=== PATIENT | female | born 1965 | race Caucasian/White ===

== ENCOUNTER 2016-11-22 14:58 | Inpatient (IN) | payer OTHER ==
[~2016-11-22] VITALS: Ht 165.1 cm; Wt 100.0 kg
[~2016-11-22 14:58] MED LIST: FLEXERIL OR; PERCOCET 5/325M1 TAB OR
[2016-11-22 16:00] LABS: HEMATOCRIT 45.2 % (37.0-47.0); IMMATURE GRANULOCYTES 1.2 % (0.0-1.0); MEAN CELL VOLUME 88.1 fL CALC (80.0-100.0); MEAN CORPUSCULAR HGB 29.2 pG CALC (26.0-32.0); MEAN CORPUSCULAR HGB CONC 33.2 g/L CALC (32.0-36.0); NEUT# 5.1 thou/uL (2.00-7.15); RED BLOOD COUNT 5.13 mill/uL (4.20-5.60); RED CELL DISTRI WIDTH 12.8 % (11.5-15.5)
[2016-11-22 16:12] LABS: ALBUMIN 4.5 g/dL (3.2-5.0); ALKALINE PHOSPHATASE 93 u/l (38-126); ANION GAP 17 (6-22 (CALC)); BILIRUBIN, TOTAL 1.1 mg/dL (0.0-1.4); BUN 15 mg/dL (7-17); BUN/CREATININE RATIO 17 (12-20 (CALC)); CALCIUM 10.5 mg/dL (8.4-10.2); CARBON DIOXIDE 28 mmol/l (22-30); CHLORIDE 102 mmol/l (95-108); CREATININE 0.9 mg/dL (0.5-1.0); GFR > 60 ML/MIN (>=60 (CALC)); GFR FOR AFR.AMER. > 60 ML/MIN (>=60 (CALC)); GLUCOSE 99 mg/dL (65-105); LIPASE 88 u/l (23-300); POTASSIUM 4.1 mmol/l (3.5-5.1); SGOT/AST 27 u/l (14-36); SGPT/ALT 45 u/l (9-52); SODIUM 143 mmol/l (137-146); TOTAL PROTEIN 7.6 g/dL (6.3-8.2)
[2016-11-22 17:19] LABS: URINE BILIRUBIN - DIPSTICK NEGATIVE (NEGATIVE); URINE BLOOD DIPSTICK NEGATIVE (NEGATIVE); URINE CLARITY CLEAR; URINE COLOR YELLOW; URINE GLUCOSE - DIPSTICK NEGATIVE (NEGATIVE); URINE KETONE TRACE mg/dL (NEGATIVE); URINE LEUK ESTERASE NEGATIVE (NEGATIVE); URINE NITRITE - DIPSTICK NEGATIVE (Negative); URINE PH 5.5 (4.5-8.0); URINE PROTEIN - DIPSTICK NEGATIVE (NEG-TRACE); URINE SPECIFIC GRAVITY >=1.030; URINE UROBILINOGEN - DIPSTICK 0.2 E.U./dL (0.2)
[2016-11-22 23:15] VITALS: BP 118/69
[2016-11-23] VITALS (10 sets, daily range): BP systolic 99–125; BP diastolic 45–85
[2016-11-24 03:55] VITALS: BP 113/48
[2016-11-24 06:59] LABS: HEMATOCRIT 38.2 % (37.0-47.0); HEMOGLOBIN 12.5 g/dl (12.0-16.0); IMMATURE GRANULOCYTES 0.6 % (0.0-1.0); MEAN CELL VOLUME 90.7 fL CALC (80.0-100.0); MEAN CORPUSCULAR HGB 29.7 pG CALC (26.0-32.0); MEAN CORPUSCULAR HGB CONC 32.7 g/L CALC (32.0-36.0); NEUT# 4.93 thou/uL (2.00-7.15); RED BLOOD COUNT 4.21 mill/uL (4.20-5.60); RED CELL DISTRI WIDTH 13.1 % (11.5-15.5)
[2016-11-24 07:22] LABS: ANION GAP 12 (6-22 (CALC)); BUN 9 mg/dL (7-17); BUN/CREATININE RATIO 11 (12-20 (CALC)); CALCIUM 8.8 mg/dL (8.4-10.2); CARBON DIOXIDE 29 mmol/l (22-30); CHLORIDE 104 mmol/l (95-108); CREATININE 0.8 mg/dL (0.5-1.0); GFR > 60 ML/MIN (>=60 (CALC)); GFR FOR AFR.AMER. > 60 ML/MIN (>=60 (CALC)); GLUCOSE 97 mg/dL (65-105); POTASSIUM 4.2 mmol/l (3.5-5.1); SODIUM 141 mmol/l (137-146)
[2016-11-24 07:49] VITALS: BP 115/51
[2016-11-24] MEDS ORDERED: LORTAB 10-325 M1 TAB PO (11:42)
== END 2016-11-24 13:58 | disposition home or self-care (01) | DRG 355 ==
LOC: ENPENDDIS → ED 14:58 → ED-I 22:40 → ED 22:48 → MS2 22:49
PROVIDERS: Emergency Medicine; ADMIT Internal Medicine; ATTEND Internal Medicine
PROC: 0WQF0ZZ Repair Abdominal Wall, Open Approach (ICD-10-PCS; principal; 2016-11-23)
DX: K42.0 Umbilical hernia with obstruction, without gangrene (principal); E66.9 Obesity, unspecified; M19.90 Unspecified osteoarthritis, unspecified site; Z68.36 Body mass index [BMI] 36.0-36.9, adult
CPT/HCPCS: J1650; J2710; Q9967

== ENCOUNTER 2018-08-31 17:45 | Emergency (ER) | payer OTHER ==
[~2018-08-31] VITALS: Ht 165.1 cm; Wt 102.2 kg
[~2018-08-31 17:45] MED LIST changes: +LORTAB 10-325 M1 TAB PO
[2018-08-31] MEDS ORDERED: TRAMADOL HCL50 MG PO (19:54)
[2018-08-31] MEDS ORDERED: VOLTAREN - GENE75 MG PO (19:54)
[2018-08-31 20:07] VITALS: BP 108/70
== END 2018-08-31 20:07 | disposition home or self-care (01) | DRG 563 ==
LOC: ED 17:45
DX: S46.911A Strain of unspecified muscle, fascia and tendon at shoulder and upper arm level, right arm, initial encounter (principal); S30.0XXA Contusion of lower back and pelvis, initial encounter; S40.021A Contusion of right upper arm, initial encounter; S70.01XA Contusion of right hip, initial encounter; W01.0XXA Fall on same level from slipping, tripping and stumbling without subsequent striking against object, initial encounter; Y92.009 Unspecified place in unspecified non-institutional (private) residence as the place of occurrence of the external cause

== ENCOUNTER 2019-02-13 19:16 | Inpatient (IN) | payer OTHER ==
[~2019-02-13] VITALS: Ht 165.1 cm; Wt 109.0 kg
[~2019-02-13 19:16] MED LIST changes: +TRAMADOL HCL50 MG PO; +VOLTAREN - GENE75 MG PO
[2019-02-13 19:47] LABS: HEMATOCRIT 43.6 % (37.0-47.0); HEMOGLOBIN 14.2 g/dl (12.0-16.0); IMMATURE GRANULOCYTES 0.6 % (0.0-5.0); MEAN CELL VOLUME 91.2 fL CALC (80.0-100.0); MEAN CORPUSCULAR HGB 29.7 pG CALC (26.0-32.0); MEAN CORPUSCULAR HGB CONC 32.6 g/L CALC (32.0-36.0); NEUT# 8.68 thou/uL (2.00-7.15); RED BLOOD COUNT 4.78 mill/uL (4.20-5.60)
[2019-02-13 20:03] LABS: ALBUMIN 4.3 g/dL (3.2-5.0); ALKALINE PHOSPHATASE 91 u/l (38-126); AMYLASE 67 u/l (30-110); ANION GAP 15 (6-22 (CALC)); BILIRUBIN, TOTAL 1.3 mg/dL (0.0-1.4); BUN 17 mg/dL (7-17); BUN/CREATININE RATIO 21 (12-20 (CALC)); CARBON DIOXIDE 26 mmol/l (22-30); CHLORIDE 103 mmol/l (95-108); CREATININE 0.8 mg/dL (0.5-1.0); GFR > 60 ML/MIN (>=60 (CALC)); GFR FOR AFR.AMER. > 60 ML/MIN (>=60 (CALC)); LIPASE 60 u/l (23-300); SGOT/AST 22 u/l (14-36); SODIUM 140 mmol/l (137-146)
[2019-02-13 20:50] LABS: URINE BILIRUBIN - DIPSTICK NEGATIVE (NEGATIVE); URINE BLOOD DIPSTICK NEGATIVE (NEGATIVE); URINE COLOR YELLOW; URINE GLUCOSE - DIPSTICK NEGATIVE (NEGATIVE); URINE KETONE NEGATIVE (NEGATIVE); URINE LEUK ESTERASE NEGATIVE (NEGATIVE); URINE NITRITE - DIPSTICK NEGATIVE (Negative); URINE PROTEIN - DIPSTICK NEGATIVE (NEG-TRACE); URINE UROBILINOGEN - DIPSTICK 0.2 E.U./dL (0.2)
[2019-02-14] VITALS (8 sets, daily range): BP systolic 102–117; BP diastolic 50–61
[2019-02-14] MEDS ORDERED: MOTRIN800 MG PO (13:47)
[2019-02-14] MEDS ORDERED: PERCOCET 5/325M1 TAB PO (13:47)
== END 2019-02-14 15:00 | disposition home or self-care (01) | DRG 352 ==
LOC: ED 19:16 → ED-I 22:00 → ED 22:14 → MS2 22:15
PROVIDERS: Emergency Medicine; ADMIT Internal Medicine; ATTEND Internal Medicine
PROC: 0YU60JZ Supplement Left Inguinal Region with Synthetic Substitute, Open Approach (ICD-10-PCS; principal; 2019-02-14)
DX: K40.30 Unilateral inguinal hernia, with obstruction, without gangrene, not specified as recurrent (principal); E66.9 Obesity, unspecified; M19.90 Unspecified osteoarthritis, unspecified site; D17.5 Benign lipomatous neoplasm of intra-abdominal organs; K59.00 Constipation, unspecified
CPT/HCPCS: C9290; J2710; Q9967

== ENCOUNTER 2019-03-14 07:32 | Observation (INO) | payer OTHER ==
[~2019-03-14] VITALS: Ht 165.1 cm; Wt 106.1 kg
[~2019-03-14 07:32] MED LIST changes: +MOTRIN800 MG PO; +PERCOCET 5/325M1 TAB PO
--- NOTE | 2019-03-14 07:36 | NUR ---
PATIENT TO ROOM VIA WHEELCHAIR.
[2019-03-14 08:18] LABS: HEMATOCRIT 41.8 % (37.0-47.0); HEMOGLOBIN 13.5 g/dl (12.0-16.0); IMMATURE GRANULOCYTES 0.5 % (0.0-5.0); MEAN CELL VOLUME 91.1 fL CALC (80.0-100.0); MEAN CORPUSCULAR HGB 29.4 pG CALC (26.0-32.0); MEAN CORPUSCULAR HGB CONC 32.3 g/L CALC (32.0-36.0); NEUT# 6.06 thou/uL (2.00-7.15); RED BLOOD COUNT 4.59 mill/uL (4.20-5.60); RED CELL DISTRI WIDTH 13.1 % (11.5-15.5)
[2019-03-14 08:31] LABS: ALBUMIN 3.9 g/dL (3.2-5.0); ALKALINE PHOSPHATASE 78 u/l (38-126); ANION GAP 13 (6-22 (CALC)); BILIRUBIN, TOTAL 0.8 mg/dL (0.0-1.4); BUN 12 mg/dL (7-17); BUN/CREATININE RATIO 19 (12-20 (CALC)); CARBON DIOXIDE 23 mmol/l (22-30); CHLORIDE 107 mmol/l (95-108); CREATININE 0.6 mg/dL (0.5-1.0); GFR > 60 ML/MIN (>=60 (CALC)); GFR FOR AFR.AMER. > 60 ML/MIN (>=60 (CALC)); SGOT/AST 19 u/l (14-36); SODIUM 139 mmol/l (137-146); TOTAL PROTEIN 6.6 g/dL (6.3-8.2)
--- NOTE | 2019-03-14 08:49 | NUR ---
PATIENT REPORTS NO CHANGE IN PAIN, AFTER BEING MEDICATED WITH 30 MG OF TORADOL IV, INFORMED. .
--- NOTE | 2019-03-14 09:15 | NUR ---
AT BEDSIDE TO DISCUSS RESULTS AND PLANS TO ADMIT, VERBAL UNDERSTANDING FROM PATIENT.
--- NOTE | 2019-03-14 09:38 | NUR ---
CALL PLACED TO [facility], SPOKE TO KAREN. WILL HAVE NURSE CALL BACK.
[2019-03-14 09:54] LABS: URINE BILIRUBIN - DIPSTICK NEGATIVE (NEGATIVE); URINE BLOOD DIPSTICK NEGATIVE (NEGATIVE); URINE COLOR YELLOW; URINE GLUCOSE - DIPSTICK NEGATIVE (NEGATIVE); URINE KETONE NEGATIVE (NEGATIVE); URINE LEUK ESTERASE NEGATIVE (NEGATIVE); URINE NITRITE - DIPSTICK NEGATIVE (Negative); URINE PH 5.5 (4.5-8.0); URINE PROTEIN - DIPSTICK NEGATIVE (NEG-TRACE); URINE SPECIFIC GRAVITY <=1.005; URINE UROBILINOGEN - DIPSTICK 0.2 E.U./dL (0.2)
--- NOTE | 2019-03-14 10:01 | NUR ---
REPORT CALLED TO WAYNE [facility]ST[facility].
--- NOTE | 2019-03-14 10:02 | NUR ---
PATIENT TRANSPORTED TO [facility] VIA STRETCHER, IV ANTIBIOTICS TO CONTINUE INFUSING. CELSO RN AT BEDSIDE, CARE RELINQUISHED.
--- NOTE | 2019-03-14 10:06 | NUR ---
Received pt via stretcher from ER with Er nurse. Pt ambulates from stretcher to scale to bed with steady gait. Admission assessment complete. Pt oriented to call lights and room and plan of care discussed. Alert and oriented x3. Heart sounds regular. Abdomen soft, tender to left lower quad. Bowel sounds active x4 quads. Peripheral pulses palpable. Edema. Skin w/d/i. Scar to LLQ post hernia repair one month ago, healed, no signs infection noted. Pt states she does not believe she has diverticulitis, feels her pain is somehow related to her surgery as she has had the pain since then and is just worse today.
[2019-03-14 10:16] VITALS: BP 123/64
--- NOTE | 2019-03-14 10:34 | NUR ---
PT DECLINED DWAYNE MOLINA AT THIS TIME. STATES SHE WILL REPOSITION AND PUMP HER TOES FREQUENTLY.
--- NOTE | 2019-03-14 10:45 | NUR ---
In to medicate pt for complaints of 8/10 LLQ pain. Instructed she was getting morphine, pt then states am I getting, informed 2mg. Pt states 5mg is usually what works for her. Then request perhaps an "anti inflammatory such like tylenol" educated patient on tylenol and informed pt she was just given pt toradol in ER. Will review with Dr Mckinley on rounding.
--- NOTE | 2019-03-14 12:36 | NUR ---
Dr Mckinley in to see patient, new orders received. Plan discussed with patient.
--- NOTE | 2019-03-14 13:18 | NUR ---
Pt ambualted to bathroom to void, Steady gait. Medicated with 4mg morphine IV.
--- NOTE | 2019-03-14 13:43 | NUR ---
I spoke with Hayley from office @[phone]. She verified the consultaion for dvt and will notify the physician.
[2019-03-14 15:19] VITALS: BP 103/60
--- NOTE | 2019-03-14 15:19 | NUR ---
Dr. Shea in to see patient.
--- NOTE | 2019-03-14 15:50 | NUR ---
Pt medicated with toradol as ordered.
[2019-03-14 19:07] VITALS: BP 109/65
--- NOTE | 2019-03-14 19:21 | NUR ---
PATIENT RESTING IN BED AT THIS TIME-AWAKE ALERT AND ORIENTEDX3. PATIENT WITH IV SITE TO RIGHT AC WITH IVF NS PATENT AND INFUSING AT 100CC/HR. SITE APPEARS HEALTHY AT THIS TIME. C/O LLQ PAIN-7/10 ON PAIN SCALE. PATIENT MEDICATED WITH MORPHINE 4MG IVP FOR PAIN. POC DISCUSSED WITH PATIENT. LUNGS ARE CLEAR. ABD IS SOFT WITH TENDERNESS TO LLQ. BS+. LAST BM WAS THIS MORNING. DENIES ANY DIFFICULTY WITH URINATION. NO PERIPHERAL EDEMA NOTED-PULSE ARE PALPABLE. HERNIA INCISION TO LEFT GROIN IS HEALING-CLOSED AND WELL APPROXIMATED. SAFETY PRECAUTIONS REINFORCED. CALL LIGHT IN REACH. WILL CONT TO MONITOR.
--- NOTE | 2019-03-14 22:31 | NUR ---
PATIENT RESTING IN BED-C/O CHILLS-TEMP 99.8. ASKING FOR CRACKERS AND THEY WERE PROVIDED. IVF PATENT AND INFUSING AT 100CC/HR VIA RAC SITE. REMAINS HELATHY. FLAGYL HUNG ORDERED. PATIENT WITH 6/10 PAIN SCALE AND MEDICATED WITH TORADOL IVP SCHEDULED. CALL LIGHT IN REACH. WILL CONT TO MONITOR.
--- NOTE | 2019-03-15 00:17 | NUR ---
PATIENT RESTING IN BED-STATES THAT HER PAIN IS DOWN TO 2/10 AT THIS TIME AFTER TAKING THE TORADOL. IVF REMAIN AT 100CC/HR VIA RIGHT AC SITE. VOIDING YELLOW URINE IN BR. CONT TO REQUEST SALINE AND THEY HAVE BEEN PROVIDED. CALL LIGHT IN REACH. WILL CONT TO MONITOR.
--- NOTE | 2019-03-15 04:00 | NUR ---
PATIENT RESTING IN BED-APPEARS SLEEPING AT THIS TIME. EYES ARE CLOSED AND RESP ARE EVEN AND UNLABORED. IVF PATENT AND INFUSING AT 100CC/HR VIA RAC SITE AT 100CC/HR., CALL LIGHT IN REACH. WILL CONT TO MONITOR.
[2019-03-15 04:16] VITALS: BP 114/61
--- NOTE | 2019-03-15 07:00 | NUR ---
RECEIVED PT IN LOW-FOWLERS POSITION, AWAKE. REPORTS SHE SLEPT VERY WELL, BETTER THAN SHE HAS IN DAYS. STATES SHE IS FEELING MUCH BETTER TODAY.
--- NOTE | 2019-03-15 07:40 | NUR ---
PT AMBULATED TO BATHROOM WITH STEADY GAIT. ASSESSMENT COMPLETE. SEE SHIFT REVIEW FOR COMPLETE ASSESSMENT. REPORTS ABDOMINAL PAIN HAS IMPROVED SIGNIFICANTLY. DOES REPORT SHE IS HAVING GAS. DENIES CONSTIPATION. IV SITE PATENT. DISCUSSED PLAN OF CARE. SET UP WITH BREAKFAST TRAY.
[2019-03-15 08:00] VITALS: BP 114/71
[2019-03-15] MEDS ORDERED: METRONIDAZOL500 MG PO (09:37)
[2019-03-15] MEDS ORDERED: CIPROFLOXACN500 MG PO (09:37)
--- NOTE | 2019-03-15 09:39 | NUR ---
DR THAPA IN TO SEE PT. DISCHARGE INSTRUCTIONS DISCUSSED.
--- NOTE | 2019-03-15 10:38 | NUR ---
Discharge instructions discussed with patient including follow up with PCP, antibitoics, staying hydrated and low residue diet. Pt denies any questions regarding follow up instructions.
--- NOTE | 2019-03-15 11:51 | NUR ---
pt left via wheelchair in stable condition with all belongings.
== END 2019-03-15 11:55 | disposition home or self-care (01) | DRG 392 ==
LOC: ED 07:32 → ED-I 09:07 → ED 09:19 → MS2 09:20
PROVIDERS: Emergency Medicine; ADMIT Internal Medicine; ATTEND Internal Medicine
DX: K57.32 Diverticulitis of large intestine without perforation or abscess without bleeding (principal); M19.90 Unspecified osteoarthritis, unspecified site; E66.9 Obesity, unspecified; Z68.38 Body mass index [BMI] 38.0-38.9, adult; Z98.890 Other specified postprocedural states
CPT/HCPCS: G0378

== ENCOUNTER 2019-05-31 20:23 | Emergency (ER) | payer OTHER ==
[~2019-05-31] VITALS: Ht 165.1 cm; Wt 102.3 kg
[~2019-05-31 20:23] MED LIST changes: +CIPROFLOXACN500 MG PO; +METRONIDAZOL500 MG PO
[2019-05-31] MEDS ORDERED: ORPHENADRINE C100 M1 PO (22:16)
[2019-05-31] MEDS ORDERED: PERCOCET 5/325M1 TAB PO (22:16)
[2019-05-31 22:33] VITALS: BP 134/63
== END 2019-05-31 22:32 | disposition home or self-care (01) | DRG 552 ==
LOC: ED 20:23
DX: S16.1XXA Strain of muscle, fascia and tendon at neck level, initial encounter (principal); S29.012A Strain of muscle and tendon of back wall of thorax, initial encounter; V43.62XA Car passenger injured in collision with other type car in traffic accident, initial encounter

== ENCOUNTER 2019-07-06 08:14 | Emergency (ER) | payer OTHER ==
[~2019-07-06] VITALS: Ht 152.4 cm; Wt 100.0 kg
[~2019-07-06 08:14] MED LIST changes: +ORPHENADRINE C100 M1 PO
[2019-07-06] MEDS ORDERED: SOMA350 MG PO (11:03)
[2019-07-06] MEDS ORDERED: MEDDOSEPAK PO (11:03)
[2019-07-06] MEDS ORDERED: TRAMADOL HYDROC50 MG PO (11:03)
[2019-07-06 11:10] VITALS: BP 121/77
== END 2019-07-06 11:10 | disposition home or self-care (01) | DRG 552 ==
LOC: ED 08:14
DX: M54.9 Dorsalgia, unspecified (principal); V89.2XXA Person injured in unspecified motor-vehicle accident, traffic, initial encounter

== ENCOUNTER 2019-07-24 00:50 | Emergency (ER) | payer OTHER ==
[~2019-07-24] VITALS: Ht 165.1 cm; Wt 99.1 kg
[~2019-07-24 00:50] MED LIST changes: +MEDDOSEPAK PO; +SOMA350 MG PO; +TRAMADOL HYDROC50 MG PO
[2019-07-24 01:36] LABS: HEMATOCRIT 37.5 % (37.0-47.0); HEMOGLOBIN 12.2 g/dl (12.0-16.0); IMMATURE GRANULOCYTES 0.6 % (0.0-5.0); MEAN CELL VOLUME 92.1 fL CALC (80.0-100.0); MEAN CORPUSCULAR HGB CONC 32.5 g/L CALC (32.0-36.0); NEUT# 4.78 thou/uL (2.00-7.15); RED BLOOD COUNT 4.07 mill/uL (4.20-5.60); RED CELL DISTRI WIDTH 13.8 % (11.5-15.5)
[2019-07-24 01:45] LABS: ALBUMIN 3.9 g/dL (3.2-5.0); ALKALINE PHOSPHATASE 82 u/l (38-126); AMYLASE 53 u/l (30-110); ANION GAP 13 (6-22 (CALC)); BILIRUBIN, TOTAL 0.5 mg/dL (0.0-1.4); BUN 13 mg/dL (7-17); BUN/CREATININE RATIO 16 (12-20 (CALC)); CARBON DIOXIDE 24 mmol/l (22-30); CHLORIDE 106 mmol/l (95-108); CREATININE 0.8 mg/dL (0.5-1.0); GFR > 60 ML/MIN (>=60 (CALC)); GFR FOR AFR.AMER. > 60 ML/MIN (>=60 (CALC)); LIPASE 85 u/l (23-300); POTASSIUM 3.9 mmol/l (3.5-5.1); SGOT/AST 20 u/l (14-36); SODIUM 140 mmol/l (137-146); TOTAL PROTEIN 6.7 g/dL (6.3-8.2)
[2019-07-24 01:49] LABS: URINE BILIRUBIN - DIPSTICK NEGATIVE (NEGATIVE); URINE BLOOD DIPSTICK NEGATIVE (NEGATIVE); URINE COLOR YELLOW; URINE GLUCOSE - DIPSTICK NEGATIVE (NEGATIVE); URINE KETONE NEGATIVE (NEGATIVE); URINE LEUK ESTERASE NEGATIVE (NEGATIVE); URINE NITRITE - DIPSTICK NEGATIVE (Negative); URINE PH 5.5 (4.5-8.0); URINE PROTEIN - DIPSTICK NEGATIVE (NEG-TRACE); URINE SPECIFIC GRAVITY >=1.030; URINE UROBILINOGEN - DIPSTICK 0.2 E.U./dL (0.2)
[2019-07-24] MEDS ORDERED: ULTRAM50 MG PO (02:40)
[2019-07-24 02:49] VITALS: BP 126/79
== END 2019-07-24 02:58 | disposition home or self-care (01) | DRG 392 ==
LOC: ED 00:50
DX: R10.11 Right upper quadrant pain (principal)

== ENCOUNTER 2023-08-15 06:44 | Day surgery (SDC) | payer MEDICARE ==
[~2023-08-15] VITALS: Ht 165.1 cm; Wt 97.5 kg
[~2023-08-15 06:44] MED LIST changes: +CELEBREX100 M1 PO; +OMEPRAZOLE DR40 MG PO; +ULTRAM50 MG PO; +ZOFRAN4 MG/TAB PO
[2023-08-15 08:36] VITALS: BP 129/74
== END 2023-08-15 08:51 | disposition home or self-care (01) ==
LOC: ORM 06:44
PROVIDERS: ATTEND Internal Medicine Gastroenterology
PROC: 0DJD8ZZ Inspection of Lower Intestinal Tract, Via Natural or Artificial Opening Endoscopic (ICD-10-PCS; principal; 2023-08-15)
DX: Z12.11 Encounter for screening for malignant neoplasm of colon (principal); K57.30 Diverticulosis of large intestine without perforation or abscess without bleeding; K64.8 Other hemorrhoids; Q43.9 Congenital malformation of intestine, unspecified; K22.70 Barrett's esophagus without dysplasia; K44.9 Diaphragmatic hernia without obstruction or gangrene; K29.50 Unspecified chronic gastritis without bleeding; Z80.0 Family history of malignant neoplasm of digestive organs

== ENCOUNTER 2024-06-04 09:40 | Day surgery (SDC) | payer MEDICARE ==
[~2024-06-04] VITALS: Ht 165.1 cm; Wt 92.1 kg
[2024-06-04] MEDS ORDERED: FAMOTIDINE 10MG/ML 2ML SDV IV ONE (10:48)
[2024-06-04] MEDS ORDERED: LACTATED RINGER'S 1,000 ML IV ONE (10:49)
[2024-06-04 12:30] VITALS: BP 126/80
[2024-06-04] MEDS ORDERED: PROPOFOL 200 MG/20 ML VIAL IV ONE (17:57)
[2024-06-04] MEDS ORDERED: LIDOCAINE HCL 2% 2ML SDV IV ONE (17:57)
[2024-06-04] MEDS ORDERED: GLYCOPYRROLATE 0.2 MG/ML IV ONE (17:57)
== END 2024-06-04 12:43 | disposition home or self-care (01) ==
LOC: ENDO 09:40 → ORM 10:45 → ENDO 10:45
PROVIDERS: ATTEND Internal Medicine Gastroenterology
PROC: 0DB48ZX Excision of Esophagogastric Junction, Via Natural or Artificial Opening Endoscopic, Diagnostic (ICD-10-PCS; principal; 2024-06-04)
PROC: 0D738ZZ Dilation of Lower Esophagus, Via Natural or Artificial Opening Endoscopic (ICD-10-PCS; 2024-06-04)
DX: K22.70 Barrett's esophagus without dysplasia (principal); K22.2 Esophageal obstruction; K21.00 Gastro-esophageal reflux disease with esophagitis, without bleeding; Z79.899 Other long term (current) drug therapy